=== PATIENT | male | born 1955 | race Caucasian/White ===

== ENCOUNTER → 2018-03-19 15:02 | Outpatient (CLI) | payer BC, SELFPAY ==
--- NOTE | 2018-03-19 15:07 | CT_ITS ---
CT lung screening EXAM: CT LUNG LOW DOSE WO CONTRAST COMPARISON: None HISTORY: 62 year old male asymptomatic with positive smoking history ITS.REASON: CURRENT TOBACCO USE ORDERING PHYSICIAN: Philippe Elizabeth MD PATIENT AGE: 62 years TECHNIQUE: The exam was performed on a GE Light Speed [address] scanner using 2.9 mGy CTDI. A low dose helical CT CHEST was performed on a multi-detector scanner. All CT scans at the facility use one or more dose reduction, viz: automated exposure control; ma/kV adjustment per patient size (including targeted exams where dose is matched to indication; i.e. head); or iterative reconstruction technique. The LDCT was performed in a facility that meets the criteria for the screening program. Data regarding this exam was submitted to ACR which is an approved registry. The order for this exam indicates that it came as a result of a lung cancer screening counseling shard decision-making visit that included all the elements required of such a visit including smoking cessation. The radiologist interpreting this exam meets the [facility] criteria for the LDCT lung cancer screening program. The exam is reported using the Lung-RADS classification scale and reported to the ACR registry. NOTE: This study was performed for the specific purposes of lung cancer screening and is not an alternative to diagnostic chest CT. RADIATION DOSE: CTDI vol(CT dose Index-volume) = 2.90mG DLP (Dose Length Product) = 100.18 mGcm FINDINGS: Indeterminate or Suspicious Lung Nodules(Category3-4B): None Indeterminate/Non-actionable Nodules(Category2): None Benign nodules(Category1)calcified granuloma left perihilar region There is mild hyperinflation with attenuation of peripheral pulmonary vessels consistent with obstructive chronic bronchitis. Mild fibrotic or atelectatic changes are present in the lung bases. There is enlarged right lobe of the thyroid gland which may be better evaluated with ultrasound. There is mild tracheal deviation toward the left IMPRESSION: 1. Lung RADS Category: 2, benign 2. Other findings: COPD with mild atelectatic or fibrotic changes in the lung bases Enlarged right lobe of the thyroid gland, cannot exclude underlying mass/nodule. Consider ultrasound for further evaluation RECOMMENDATIONS: 12 month LDCT follow-up Ultrasound of the thyroid gland
== END ==
PROVIDERS: Family Provider Family Medicine; PCP Family Medicine; Visit Provider Family Medicine
DX: Z87.891 Personal history of nicotine dependence (principal); Z12.2 Encounter for screening for malignant neoplasm of respiratory organs

== ENCOUNTER → 2018-03-28 10:41 | Outpatient (CLI) | payer BC, SELFPAY ==
--- NOTE | 2018-03-28 10:53 | US_ITS ---
ULTRASOUND THYROID PROCEDURE: Multiple sagittal & transverse ultrasound images of the thyroid. HISTORY: Enlarged thyroid seen on recent CT chest screening COMPARISON: 03/19/2018 CT chest ----- FINDINGS: Diffusely enlarged marked inhomogeneous thyroid gland. Multiple nodules bilateral. Inhomogeneous coarse character particularly evident throughout the right lobe inferiorly.. RIGHT LOBE:. 6.5 cm length x 3.4 cm wide x 3.2 cm height. Nodule A: Solid nodule Anterior upper pole 2.2 cm transverse X 1.5 cm length x 1 cm AP. Nodule B: 1.6 x 1.2 x 1.1 cm solid nodule medial aspect towards lower pole right lobe Nodule C:. Although no well-defined nodule there is inferior extension lower pole right lobe. This portion of the right lobe is very inhomogeneous and extends behind the head of right clavicle continuing towards the level inferior sternal notch to the right of midline. This is feature inferior anatomy best seen on prior CT. LEFT LOBE: 4.7 cm length x 2.2 cm wide x 2.2 cm AP. Nodule A:. Large vaguely marginated Solid nodule 3.1 cm length. 1.6 cm AP 1.3 cm transverse at upper pole left lobe.. . . ISTHMUS: Thickened appearing isthmus measuring up to 9.6 mm AP IMPRESSION Bilateral thyroid nodules. Right lobe is grossly enlarged measuring 6.5 cm in length. Inhomogeneous ill-defined area Extends down behind head of clavicle down to the level of inferior right sternal notch., although a defined a discrete nodule this is the most prominent area of focal enlargement on right. Overview of this is best seen on prior CT chest 2additional better nodules are seen on right as discussed in text Left lobe is less enlarged measuring 4.7 cm in length. Largest defined nodule upper pole on left.-, Measures up to 3.1 cm in length
== END ==
PROVIDERS: Family Provider Family Medicine; PCP Family Medicine; Visit Provider Family Medicine
DX: R94.6 Abnormal results of thyroid function studies (principal)
CPT/HCPCS: 76536

== ENCOUNTER → 2018-05-22 08:18 | Outpatient (CLI) | payer BC, SELFPAY ==
--- NOTE | 2018-05-22 08:21 | US_ITS ---
US organ site (thyroid), US biopsy guidance Ordering Physician: Jose Alejandro Gilmore MD Patient Age: 63 years: Male HISTORY: ITS.REASON: thyroid nodule Enlarged right lobe of thyroid nodule appearance lower pole seen on recent screening CT chest and right thyroid ultrasound. TECHNIQUE: ... Ultrasound thyroid BH/Q ... Ultrasound-guided FNA lower lobe nodule FINDINGS AND PROCEDURE: ULTRASOUND thyroid; The thyroid were surveyed with attention to the right lobe Ill-defined lobulation/ mass is identified lower pole right lobe and measures up to ~ 3 cm maximally x 2.5 cm transverse. .These images also determined the best approach for access to perform aspiration biopsy of this nodule. Scanning by Dr. Morataya andGENIE ULTRASOUND-GUIDED FNA BIOPSY- nodule lower pole right lobe . sterile preparation as well as local skin, and cautious deeper placement of Xylocaine anesthetic .. Under ultrasound guidance the biopsy needle, was advanced to the nodule and positioned. Needle tip was observed passing into the nodule on each of multipleFNA biopsies passes. But: 4 passes were performed utilizing 22-gauge needle . Minimal blood was obtained with some of the aspirations . Generous material within the cytology container Right lower lobe thyroid FNA specimen material obtained and subsequently submitted to cytopathology Patient tolerated procedure well. Very cooperative patient IMPRESSION: Ultrasound-guided FNA thyroid biopsy and sampling, throughout right lower lobe nodule/ , & region of lobulation off the lower pole Patient tolerated procedure well CYTOPATHOLOGY REPORT. Negative for malignancy. Findings consistent with benign follicular nodule with features suggesting underlying chronic thyroiditis
[2018-05-22 09:41] LABS: Free T4 (Free Thyroxine) 1.28 ng/dl (0.76-1.46); Thyroid Stimulating Hormone 0.61 uIU/ml (0.358-3.740)
[2018-05-23 20:05] LABS: Thyroid Peroxidase Antibodies 550 IU/mL (0-34)
[2018-05-26 09:48] LABS: Calcitonin 2.1 pg/mL (0.0-8.4)
[2018-05-27 09:18] LABS: Thyroid Stimulating Immunoglob <0.10 IU/L (0.00-0.55)
== END ==
PROVIDERS: Family Provider Family Medicine; PCP Family Medicine; Visit Provider Otolaryngology
DX: E04.9 Nontoxic goiter, unspecified (principal); E04.1 Nontoxic single thyroid nodule; E06.9 Thyroiditis, unspecified
CPT/HCPCS: 10022; 36415; 76942; 82308; 84439; 84443; 84445; 86376

== ENCOUNTER → 2018-07-02 08:24 | Outpatient (CLI) | payer BC, SELFPAY ==
[2018-07-02 09:37] LABS: Basophils # 0.1 K/mm3 (0-0.2); Basophils % 0.6 % (0.1-2.0); Eosinophils # 0.2 K/mm3 (0.0-0.4); Eosinophils % 2.3 % (0.1-12.0); Hematocrit 50.5 % (42.0-52.0); Hemoglobin 16.8 g/dL (14.1-18.0); Lymphocytes % 35.6 K/mm3 (10-50); Mean Corpuscular HGB Conc 33.2 g/dL (31.8-35.4); Mean Corpuscular Hemoglobin 30.5 pg (27.0-31.2); Mean Corpuscular Volume 91.8 fl (80-94); Mean Platelet Volume 7.3 fl (7.4-10.4); Monocytes # 0.8 K/mm3 (0.1-1.0); Monocytes % 9.8 % (1.7-9.3); Neutrophils # 4.4 K/mm3 (1.8-7.8); Neutrophils % 51.7 % (37.0-80.0); Platelet Count 252 K/mm3 (142-424); Red Cell Distribution Width 13.1 % (11.5-17.5); White Blood Count 8.5 K/mm3 (4.8-10.8)
[2018-07-02 11:00] LABS: Alanine Aminotransferase 41 U/L (12-78); Albumin Level 3.8 gm/dL (3.4-5.0); Albumin/Globulin Ratio 1.1 (1.1-1.8); Alkaline Phosphatase 88 U/L (46-116); Anion Gap 12.2 mEq/L (5-15); Aspartate Amino Transferase 17 U/L (15-37); Bilirubin,Total 0.4 mg/dL (0.2-1.0); Blood Urea Nitrogen 19 mg/dL (7-18); Calcium 9.2 mg/dL (8.5-10.1); Carbon Dioxide 26 mmol/L (21.0-32.0); Chloride 106 mmol/L (98-107); Creatinine,Serum 1.43 mg/dL (0.70-1.30); Estimated Glomerular Filt Rate 50 ml/min (>60); GFR (African American) 61 ML/MIN (>60); Globulin 3.6 gm/dl (1.3-3.2); Glucose 141 mg/dL (74-106); Potassium 4.2 mmoL/L (3.5-5.1); Sodium 140 mmol/L (136-145); Total Protein,Serum 7.4 gm/dL (6.4-8.2)
== END ==
PROVIDERS: Visit Provider Nurse Practitioner
DX: Z01.818 Encounter for other preprocedural examination (principal)
CPT/HCPCS: 36415; 80053; 85025; 93005

== ENCOUNTER → 2018-08-13 14:35 | Outpatient (CLI) | payer BC, SELFPAY ==
[2018-08-13 16:26] LABS: Free T4 (Free Thyroxine) 1.53 ng/dl (0.76-1.46); Thyroid Stimulating Hormone 0.08 uIU/ml (0.358-3.740)
== END ==
PROVIDERS: Family Provider Family Medicine; PCP Family Medicine; Visit Provider Otolaryngology
DX: E04.1 Nontoxic single thyroid nodule (principal); E04.9 Nontoxic goiter, unspecified
CPT/HCPCS: 36415; 84439; 84443

== ENCOUNTER → 2021-03-20 07:39 | Outpatient (CLI) | payer BC, SELFPAY ==
--- NOTE | 2021-03-20 07:43 | CT_ITS ---
PROCEDURE: CT LUNG SCREENING CLINICAL INDICATION: H/O NICOTINE DEPENDENCE Current smoker 48 pack year smoking history COMPARISON: CT LUNGSCREEN CT lung screening from 03/19/2018 TECHNIQUE: The exam was performed on a GE Light Speed [address] scanner using 2.90 mGy CTDI. A low dose helical CT CHEST was performed on a multi-detector scanner. All CT scans at the facility use one or more dose reduction, viz: automated exposure control, ma/kV adjustment per patient size (including targeted exams where dose is matched to indication, i.e. head), or iterative reconstruction technique. The LDCT was performed in a facility that meets the criteria for the screening program. Data regarding this exam was submitted to ACR which is an approved registry. The order for this exam indicates that it came as a result of a lung cancer screening counseling shard decision-making visit that included all the elements required of such a visit including smoking cessation. The radiologist interpreting this exam meets the CMS criteria for the LDCT lung cancer screening program. The exam is reported using the Lung-RADS classification scale and reported to the ACR registry. NOTE: This study was performed for the specific purposes of lung cancer screening and is not an alternative to diagnostic chest CT. RADIATION DOSE: CTDI vol(CT dose Index-volume) = 2.90mG DLP (Dose Length Product) = 115.94 mGcm FINDINGS: COPD changes. No suspicious nodules. Evidence of old granulomatous disease. OTHER FINDINGS: Mild gynecomastia. Fatty liver cholelithiasis IMPRESSION: Lung-RADS Category 1 Negative Follow-up: Continue annual screening with LDCT in 12 months Dictated by: Dank Galvan MD 03/30/2021 10:44 Dank Galvan MD in [place] 03/30/2021 10:44
== END ==
PROVIDERS: PCP Family Medicine; Visit Provider Nurse Practitioner
DX: Z87.891 Personal history of nicotine dependence (principal); Z12.2 Encounter for screening for malignant neoplasm of respiratory organs
CPT/HCPCS: 71271

== ENCOUNTER 2022-08-06 02:52 | Emergency (ER) | payer BC, SELFPAY ==
[2022-08-06 02:53] VITALS: BP 164/92; PULSE 71; RESP 18; TEMP 36.5; O2SAT 98; BMI 26.4
--- NOTE | 2022-08-06 03:03 | CT_ITS ---
PROCEDURE INFORMATION: Exam: CTA Neck With Contrast Exam date and time: 08/06/2022 3:34 AM Age: 67 years old Clinical indication: Visual disturbance; Diplopia; Additional info: Binocular diplpia TECHNIQUE: Imaging protocol: Computed tomographic angiography of the neck with contrast. 3D rendering (Not supervised by radiologist): MIP and/or 3D reconstructed images were created by the technologist. Radiation optimization: All CT scans at this facility use at least one of these dose optimization techniques: automated exposure control; mA and/or kV adjustment per patient size (includes targeted exams where dose is matched to clinical indication); or iterative reconstruction. Contrast material: ISOVUE 370; Contrast volume: 100 ml; Contrast route: INTRAVENOUS (IV); COMPARISON: CT HEAD/BRAIN WO CON 08/06/2022 3:32 AM FINDINGS: Right common carotid artery: No stenosis. No dissection or occlusion. Right internal carotid artery: No stenosis of the extracranial segment. No dissection or occlusion. Right external carotid artery: No occlusion or stenosis of the origin. Left common carotid artery: No stenosis. No dissection or occlusion. Left internal carotid artery: No stenosis of the extracranial segment. No dissection or occlusion. Left external carotid artery: No occlusion or stenosis of the origin. Right vertebral artery: No stenosis. No dissection or occlusion. Left vertebral artery: No stenosis. No dissection or occlusion. Soft tissues: Normal. No significant soft tissue swelling. Bones/joints: No acute fracture. IMPRESSION: No occlusion or hemodynamically significant stenosis of the extracranial carotid systems and vertebral arteries. REFERENCES: NASCET CRITERIA. The degree of stenosis in the cervical segment of the internal carotid artery is based on NASCET criteria. Normal is no stenosis. Mild is less than 50% stenosis. Moderate is 50-69% stenosis. Severe is 70% to 99% stenosis. Total occlusion is no detectable patent lumen.
--- NOTE | 2022-08-06 03:03 | CT_ITS ---
PROCEDURE INFORMATION: Exam: CT Head Without Contrast Exam date and time: 08/06/2022 3:32 AM Age: 67 years old Clinical indication: Visual disturbance; Additional info: Binocular diplopia TECHNIQUE: Imaging protocol: Computed tomography of the head without contrast. Radiation optimization: All CT scans at this facility use at least one of these dose optimization techniques: automated exposure control; mA and/or kV adjustment per patient size (includes targeted exams where dose is matched to clinical indication); or iterative reconstruction. COMPARISON: No relevant prior studies available. FINDINGS: Brain: No evidence of mass effect or midline shift. No focal areas of abnormal attenuation. The dickinson/white matter interfaces are preserved. The basal cisterns are patent. Cerebral ventricles: No ventriculomegaly. Paranasal sinuses: Visualized sinuses are unremarkable. No fluid levels. Mastoid air cells: Visualized mastoid air cells are well aerated. Orbital cavities: The orbits and and orbital contents have a normal CT appearance. Bones/joints: Unremarkable. No acute fracture. Soft tissues: Unremarkable. IMPRESSION: 1. No CT evidence of intracranial hemorrhage, mass effect, midline shift or hydrocephalus. 2. Orbits and and orbital contents have a normal CT appearance.
--- NOTE | 2022-08-06 03:03 | CT_ITS ---
PROCEDURE INFORMATION: Exam: CTA Head With Contrast, Arteriography Exam date and time: 08/06/2022 3:34 AM Age: 67 years old Clinical indication: Visual disturbance; Diplopia; Additional info: Binocular diplopia TECHNIQUE: Imaging protocol: Computed tomographic angiography of the head with contrast. Exam focused on the arteries. 3D rendering (Not supervised by radiologist): MIP and/or 3D reconstructed images were created by the technologist. Radiation optimization: All CT scans at this facility use at least one of these dose optimization techniques: automated exposure control; mA and/or kV adjustment per patient size (includes targeted exams where dose is matched to clinical indication); or iterative reconstruction. Contrast material: ISOVUE 370; Contrast volume: 100 ml; Contrast route: INTRAVENOUS (IV); COMPARISON: CT HEAD/BRAIN WO CON 08/06/2022 3:32 AM FINDINGS: ANTERIOR CIRCULATION: Right internal carotid artery: Unremarkable. Intracranial segment is patent with no significant stenosis. No aneurysm. Right middle cerebral artery: Unremarkable. No occlusion or significant stenosis. No aneurysm. Right anterior cerebral artery: Unremarkable. No occlusion or significant stenosis. No aneurysm. Left internal carotid artery: Unremarkable. Intracranial segment is patent with no significant stenosis. No aneurysm. Left middle cerebral artery: No occlusion or significant stenosis. No aneurysm. Left anterior cerebral artery: No occlusion or significant stenosis. No aneurysm. POSTERIOR CIRCULATION: Right vertebral artery: Unremarkable. No occlusion or significant stenosis. No aneurysm. Left vertebral artery: Unremarkable. No occlusion or significant stenosis. No aneurysm. Basilar artery: Unremarkable. No occlusion or significant stenosis. No aneurysm. Right posterior cerebral artery: Unremarkable. No occlusion or significant stenosis. No aneurysm. Left posterior cerebral artery: Unremarkable. No occlusion or significant stenosis. No aneurysm. Brain: No evidence of intracranial hemorrhage, mass effect, midline shift or hydrocephalus. Cerebral ventricles: No ventriculomegaly. Bones/joints: Unremarkable. No acute fracture. Soft tissues: Unremarkable. IMPRESSION: No large vessel stenosis or occlusion.
[2022-08-06 03:17] LABS: Basophils # 0.1 K/mm3 (0-0.2); Basophils % 1.5 % (0.1-2.0); Eosinophils # 0.2 K/mm3 (0.0-0.4); Eosinophils % 2.5 % (0.1-12.0); Hematocrit 52.5 % (42.0-52.0); Lymphocytes # 2.7 K/mm3 (0.7-4.5); Lymphocytes % 28.8 % (10-50); Mean Corpuscular HGB Conc 32.3 g/dL (31.8-35.4); Mean Corpuscular Hemoglobin 30.7 pg (27.0-31.2); Mean Corpuscular Volume 94.9 fl (80-94); Mean Platelet Volume 7.7 fl (7.4-10.4); Monocytes # 1.1 K/mm3 (0.1-1.0); Monocytes % 11.4 % (1.7-9.3); Neutrophils # 5.3 K/mm3 (1.8-7.8); Neutrophils % 55.7 % (37.0-80.0); Platelet Count 242 K/mm3 (142-424); Red Blood Count 5.54 M/mm3 (4.60-6.20); White Blood Count 9.5 K/mm3 (4.8-10.8)
[2022-08-06 03:28] LABS: Alanine Aminotransferase 33 U/L (12-78); Albumin Level 4.2 g/dl (3.5-5.0); Albumin/Globulin Ratio 1.4 (1.1-1.8); Alkaline Phosphatase 128 U/L (38-126); Aspartate Amino Transferase 31 U/L (17-59); Blood Urea Nitrogen 19 mg/dl (9-20); Calcium 9.1 mg/dl (8.4-10.2); Carbon Dioxide 25 mmol/L (22.0-30.0); Chloride 106 mmol/L (98-107); Creatinine Clearance Estimated 93 mL/min (50-200); Estimated Glomerular Filt Rate 97 ml/min (>60); GFR (African American) 117 ML/MIN (>60); Glucose 184 mg/dl (74-100); Sodium 137 mmol/L (136-145); Total Protein,Serum 7.2 g/dl (6.3-8.2)
[2022-08-06 03:29] LABS: Bilirubin,Total 0.1 mg/dl (0.2-1.3)
[2022-08-06 03:30] VITALS: BP 133/86; PULSE 63; O2SAT 98
[2022-08-06 04:00] VITALS: BP 138/71; PULSE 71; O2SAT 98
--- NOTE | 2022-08-06 04:15 | HMH.EDGENADL ---
Discharge Plan Disposition Patient Disposition: Home Health Service Condition: Good Prescriptions Prescriptions: New amoxicillin-pot clavulanate [Augmentin] 500-125 mg tablet 1 tab PO Q12H Qty: 20 0RF No Action fenofibric acid (choline) [Trilipix] 135 mg capsule,delayed release(DR/EC) 135 mg PO ONCE pravastatin 40 mg tablet 40 mg PO ONCE sitagliptin-metformin [Janumet] 50-1,000 mg tablet 1 tab PO ONCE lisinopril 10 mg tablet 10 mg PO DAILY 30 Days Qty: 30 omeprazole 40 mg capsule,delayed release(DR/EC) 40 mg PO DAILY 30 Days Qty: 30 levothyroxine [Synthroid] 200 mcg tablet 225 mcg PO ONCE Referrals Follow up/Referrals: Calos You MD [Referring] - See instructions (Increased congestion with diplopia, CT head and CTA head/ neck unremarkable) Davi Nolasco MD [Physician] - See instructions Leigh Goss MD [Primary Care Provider] - See instructions (Increased congestion with diplopia , CT head and CTA head/neck unremarkable ) Activity Restrictions/Add. Instructions Additional Instructions/Restrictions: You have been referred to ENT as well as opthamology for your ongoing symptoms. Symptoms may be secondary to increased congestion however, Please call numbers provided saturday to make appointment with both specialist, starting with opthamology. You have been given antibiotic for chronic sinusitis use as prescribed. Please use over the counter decongestants such as mucinex, flonase to help w/ congestion. You can also use humidifier to breath moist air. Please return to [facility] if numbness, weakness, headache, speech changes, neck pain or any other worsening symptoms. Clinical Impressions Clinical Impression: Change in vision, Congestion of nasal sinus, Sinusitis Instructions Patient Instructions: DI for Sinusitis, DI for Visual Field Disturbances Discharge ED Provider: Nicole Pryor General Adult HPI General Chief complaint: Headache Stated complaint: severe headache, double vision Time Seen by Provider: 08/06/22 04:30 Mode of Arrival: Ambulatory Source of Information: Patient Limitations: No Limitations Description of Symptoms (Recalled from ER Triage Doc. by RN): pt c/o double vision x couple days with NOE and pressure behind lt eye History of Present Illness HPI narrative: Mr. Bowens is a 67 yo male w/ no significant PMH presenting to the ED for constant binocular diplopia for about a week and increased congestion and pressure behind his (L) eye for 3 weeks. Patient reports he has had increased congested and has attempted to take afrin with no relief in congestion. Patient denies headache. No pain w/ EOM. No focal neurological deficits. No fevers, chills or other systemic signs of infection. MD complaint: Binocular diplopia Related Data Home Medications Medication Instructions Recorded Confirmed fenofibric acid (choline) 135 mg 135 mg PO ONCE triglycerides 04/09/18 05/15/18 capsule,delayed release (Trilipix) lisinopril 10 mg tablet 10 mg PO DAILY blood pressure 30 04/09/18 05/15/18 days ##30 omeprazole 40 mg capsule,delayed 40 mg PO DAILY stomach 30 days ##30 04/09/18 05/15/18 release pravastatin 40 mg tablet 40 mg PO ONCE Cholesterol 04/09/18 05/15/18 sitagliptin 50 mg-metformin 1,000 1 tab PO ONCE Diabetes 04/09/18 05/15/18 mg tablet (Janumet) levothyroxine 200 mcg tablet 225 mcg PO ONCE thyroid 08/18/18 (Synthroid) Previous Rx's Medication Instructions Recorded amoxicillin 500 mg-potassium 1 tab PO Q12H #20 tabs 08/06/22 clavulanate 125 mg tablet (Augmentin) Allergies Allergy/AdvReac Type Severity Reaction Status Date / Time No Known Allergies Allergy Verified 08/18/18 12:51 [facility] Medical History Diabetes High cholesterol Hypertension Social History Smoking Status: Current every day smoker tobac
[2022-08-06 04:41] VITALS: BP 130/83; PULSE 66; RESP 16; TEMP 36.7; O2SAT 96
== END 2022-08-06 04:42 | disposition home health service (06) ==
PROVIDERS: Emergency Provider Student in an Organized Health Care Education/Training Program; PCP Family Medicine
DX: H53.9 Unspecified visual disturbance (principal); J32.9 Chronic sinusitis, unspecified; Z72.0 Tobacco use
CPT/HCPCS: 70450; 70496; 70498; 80053; 85025; 99285; Q9967

== ENCOUNTER → 2023-07-03 08:58 | Outpatient (CLI) | payer MEDICARE, SELFPAY ==
[2023-07-03 18:10] LABS: Basophils # 0.1 K/mm3 (0-0.2); Basophils % 0.8 % (0.1-2.0); Eosinophils # 0.2 K/mm3 (0.0-0.4); Eosinophils % 1.8 % (0.1-12.0); Hematocrit 59.6 % (42.0-52.0); Lymphocytes # 2.9 K/mm3 (0.7-4.5); Lymphocytes % 32.5 % (10-50); Mean Corpuscular HGB Conc 31.3 g/dL (31.8-35.4); Mean Corpuscular Hemoglobin 29.1 pg (27.0-31.2); Mean Platelet Volume 9.5 fl (7.4-10.4); Monocytes # 0.8 K/mm3 (0.1-1.0); Monocytes % 9.3 % (1.7-9.3); Neutrophils % 55.5 % (37.0-80.0); Platelet Count 241 K/mm3 (142-424); Red Blood Count 6.41 M/mm3 (4.60-6.20); Red Cell Distribution Width 13.6 % (11.5-17.5)
[2023-07-03 18:20] LABS: Hemoglobin 18.7 g/dL (14.1-18.0)
[2023-07-03 18:20] LABS: Creatinine,Urine Random 116 mg/dL (Not Estab.); Microalbumin/Creatinine Ratio 6.9
[2023-07-03 18:21] LABS: Alanine Aminotransferase 32 U/L (12-78); Albumin Level 4.7 g/dl (3.5-5.0); Albumin/Globulin Ratio 1.6 (1.1-1.8); Alkaline Phosphatase 98 U/L (38-126); Anion Gap 12.7 mEq/L (5-15); Aspartate Amino Transferase 30 U/L (17-59); Bilirubin,Total 0.7 mg/dl (0.2-1.3); Blood Urea Nitrogen 20 mg/dl (9-20); Calcium 9.6 mg/dl (8.4-10.2); Carbon Dioxide 26 mmol/L (22.0-30.0); Chloride 105 mmol/L (98-107); Chol/HDL Ratio 7.7 (1-3.5); Cholesterol 270 mg/dl (140-200); Estimated Glomerular Filt Rate 67 ml/min (>60); GFR (African American) 81 ML/MIN (>60); Globulin 2.9 g/dL (1.3-3.2); Glucose 105 mg/dl (74-100); HDL Cholesterol 35 mg/dl (40-60); Potassium 4.7 mmoL/L (3.5-5.1); Sodium 139 mmol/L (136-145); Total Protein,Serum 7.6 g/dl (6.3-8.2); Triglycerides 263 mg/dl (30-150); VLDL Cholesterol 53 mg/dL (0-40)
[2023-07-03 18:22] LABS: Free T4 (Free Thyroxine) 0.66 ng/dl (0.78-2.19)
[2023-07-03 18:32] LABS: Direct LDL Cholesterol 166.65 mg/dL (100-129)
[2023-07-03 18:52] LABS: Prostate Specific Ag Screen 0.5 ng/ml (0.0-4.0)
[2023-07-03 18:54] LABS: Thyroid Stimulating Hormone 4.58 uIU/mL (0.465-4.68)
[2023-07-03 19:13] LABS: Vitamin B12 303 pg/mL (239-931)
[2023-07-03 20:09] LABS: Hemoglobin A1C 7.5 % (4.0-6.0)
== END ==
PROVIDERS: PCP Nurse Practitioner; Visit Provider Nurse Practitioner
DX: E03.9 Hypothyroidism, unspecified (principal); E11.9 Type 2 diabetes mellitus without complications; E78.5 Hyperlipidemia, unspecified; I10 Essential (primary) hypertension; K21.9 Gastro-esophageal reflux disease without esophagitis; Z12.5 Encounter for screening for malignant neoplasm of prostate; Z79.899 Other long term (current) drug therapy
CPT/HCPCS: 80053; 80061; 82043; 82570; 82607; 83036; 84439; 84443; 85025; G0103

== ENCOUNTER 2024-07-03 11:32 | Outpatient (CLI) | payer MEDICARE, SELFPAY ==
[2024-07-03 17:56] LABS: Microscopic, Urine URINE MICROSCOPIC (MICROSCOPIC)
[2024-07-03 18:08] LABS: Basophils # 0.2 K/mm3 (0-0.2); Basophils % 1.8 % (0.1-2.0); Eosinophils # 0.2 K/mm3 (0.0-0.4); Eosinophils % 2.1 % (0.1-12.0); Hematocrit 57.3 % (42.0-52.0); Lymphocytes # 2.5 K/mm3 (0.7-4.5); Lymphocytes % 30.6 % (10-50); Mean Corpuscular HGB Conc 32.6 g/dL (31.8-35.4); Mean Corpuscular Hemoglobin 31.7 pg (27.0-31.2); Mean Corpuscular Volume 97.3 fl (80-94); Mean Platelet Volume 9.2 fl (7.4-10.4); Monocytes # 0.8 K/mm3 (0.1-1.0); Monocytes % 9.4 % (1.7-9.3); Neutrophils # 4.6 K/mm3 (1.8-7.8); Platelet Count 227 K/mm3 (142-424); Red Blood Count 5.89 M/mm3 (4.60-6.20); Red Cell Distribution Width 13.7 % (11.5-17.5); White Blood Count 8.2 K/mm3 (4.8-10.8)
[2024-07-03 18:24] LABS: Hemoglobin 18.7 g/dL (14.1-18.0)
[2024-07-03 18:25] LABS: Alanine Aminotransferase 43 U/L (12-78); Albumin Level 4.3 g/dl (3.5-5.0); Albumin/Globulin Ratio 1.4 (1.1-1.8); Alkaline Phosphatase 99 U/L (38-126); Anion Gap 12.4 mEq/L (5-15); Aspartate Amino Transferase 32 U/L (17-59); Bilirubin,Total 0.5 mg/dl (0.2-1.3); Blood Urea Nitrogen 19 mg/dl (9-20); Calcium 9.7 mg/dl (8.4-10.2); Carbon Dioxide 25 mmol/L (22.0-30.0); Chloride 106 mmol/L (98-107); Chol/HDL Ratio 5.3 (1-3.5); Cholesterol 163 mg/dl (140-200); Estimated Glomerular Filt Rate 74 ml/min (>60); GFR (African American) 90 ML/MIN (>60); Globulin 3.1 g/dL (1.3-3.2); Glucose 144 mg/dl (74-100); HDL Cholesterol 31 mg/dl (40-60); Hemoglobin A1C 7.5 % (4.0-6.0); Potassium 4.4 mmoL/L (3.5-5.1); Sodium 139 mmol/L (136-145); Total Protein,Serum 7.4 g/dl (6.3-8.2); Triglycerides 277 mg/dl (30-150); VLDL Cholesterol 55 mg/dL (0-40)
[2024-07-03 18:28] LABS: Appearance,Urine CLEAR (Clear); Bilirubin,Urine Negative (Negative); Blood, Urine Negative (Negative); Color,Urine YELLOW (Yellow); Glucose,Urine (UA) 3+ (Negative); Ketones,Urine Negative (Negative); Leukocyte Esterase,Urine Negative (Negative); Nitrate,Urine Negative (Negative); Protein,Urine Negative (Negative); Specific Gravity, Urine >= 1.030 (1.005-1.030); Urobilinogen,Urine 0.2 EU/dl (0.2)
[2024-07-03 18:35] LABS: Direct LDL Cholesterol 91.36 mg/dL (100-129)
[2024-07-03 18:41] LABS: 25-OH Vitamin D, Total 45.7 ng/mL (30-100)
[2024-07-03 18:49] LABS: Bacteria,Urine Trace /lpf; Squamous Epithelial Cell,Urine Occasional #/hpf (0-5); WBC,Urine Occasional #/hpf (0-3)
[2024-07-03 18:56] LABS: Thyroid Stimulating Hormone 0.06 uIU/mL (0.465-4.68)
[2024-07-03 19:14] LABS: Vitamin B12 318 pg/mL (239-931)
== END 2024-07-03 23:59 | disposition home or self-care (01) ==
LOC: LAB.DROPOF 07-06 11:32
PROVIDERS: PCP Nurse Practitioner Family; Visit Provider Nurse Practitioner Family
DX: E11.9 Type 2 diabetes mellitus without complications (principal); E03.9 Hypothyroidism, unspecified; E55.9 Vitamin D deficiency, unspecified; R10.9 Unspecified abdominal pain
CPT/HCPCS: 80050; 80053; 80061; 81001; 82306; 82607; 83036; 84443; 85025; 87086

== ENCOUNTER 2025-03-17 09:15 | Outpatient (CLI) | payer MEDICARE, SELFPAY ==
[2025-03-17 18:48] LABS: Hemoglobin A1C 7.8 % (4.0-6.0)
[2025-03-17 19:17] LABS: Alanine Aminotransferase 30 U/L (12-78); Albumin Level 4.2 g/dl (3.5-5.0); Albumin/Globulin Ratio 1.4 (1.1-1.8); Alkaline Phosphatase 119 U/L (38-126); Anion Gap 16.7 mEq/L (5-15); Aspartate Amino Transferase 28 U/L (17-59); Bilirubin,Total 0.5 mg/dl (0.2-1.3); Blood Urea Nitrogen 14 mg/dl (9-20); Calcium 9.4 mg/dl (8.4-10.2); Carbon Dioxide 24 mmol/L (22.0-30.0); Chloride 104 mmol/L (98-107); Chol/HDL Ratio 5.8 (1-3.5); Cholesterol 167 mg/dl (140-200); Estimated Glomerular Filt Rate 84 ml/min (>60); GFR (African American) 102 ML/MIN (>60); Globulin 3.1 g/dL (1.3-3.2); Glucose 125 mg/dl (74-100); HDL Cholesterol 29 mg/dl (40-60); Potassium 4.7 mmoL/L (3.5-5.1); Sodium 140 mmol/L (136-145); Total Protein,Serum 7.3 g/dl (6.3-8.2); Triglycerides 335 mg/dl (30-150); VLDL Cholesterol 67 mg/dL (0-40)
[2025-03-17 19:27] LABS: Direct LDL Cholesterol 84.87 mg/dL (100-129)
[2025-03-17 19:30] LABS: Free T4 (Free Thyroxine) 1.28 ng/dl (0.78-2.19)
[2025-03-17 19:42] LABS: Creatinine,Urine Random 109 mg/dL (Not Estab.)
[2025-03-17 19:45] LABS: Microalbumin/Creatinine Ratio 5.5
[2025-03-17 19:48] LABS: Prostate Specific Ag Screen 0.5 ng/ml (0.0-4.0); Thyroid Stimulating Hormone 0.25 uIU/mL (0.465-4.68)
== END 2025-03-17 23:59 | disposition home or self-care (01) ==
LOC: LAB.DROPOF 03-18 10:51
PROVIDERS: PCP Nurse Practitioner; Visit Provider Nurse Practitioner
DX: E78.5 Hyperlipidemia, unspecified (principal); E11.9 Type 2 diabetes mellitus without complications; I10 Essential (primary) hypertension; E03.9 Hypothyroidism, unspecified; K21.9 Gastro-esophageal reflux disease without esophagitis; Z12.5 Encounter for screening for malignant neoplasm of prostate
CPT/HCPCS: 80053; 80061; 82043; 82570; 83036; 84439; 84443; G0103

== ENCOUNTER 2025-06-17 06:04 | Day surgery (SDC) | payer MEDICARE, SELFPAY ==
[2025-06-15 17:28] VITALS: BMI 25.0
[2025-06-17 06:15] VITALS: BP 119/78; PULSE 67; RESP 18; O2SAT 97
[2025-06-17] MEDS: LACTATED RINGERS 1000ML 1,000 ML 50 ML IV (06:32)
[2025-06-17 06:42] LABS: POC Glucose,Bedside 131 (70-110)
--- NOTE | 2025-06-17 07:06 | EXP.ANES.CKL ---
[facility] Disclaimer: The information contained in this section may have been updated after the patient was seen, as this information can be updated by other users. Medical History GERD (gastroesophageal reflux disease) Acquired hypothyroidism Type 2 diabetes mellitus without complications Hyperlipidemia Essential hypertension High cholesterol Diabetes Hypertension Family History (Updated 06/17/25 @ 06:29 by La Galdamez RN) Other No significant family history Social History (Updated 06/17/25 @ 06:27 by La Galdamez RN) Smoking Status: Current every day smoker tobacco type: cigarettes packs per day: 1 alcohol intake: current alcohol intake frequency: holidays/special occasions only counseling provided: none substance use type: denies use current occupational status: other Travel in the last 8 weeks?: None caffeine: No Have you lived/traveled outside [place] in past 30 days?: No Contact w/someone who lives/traveled outside [place] past 30 days?: No Exposure to someone with infectious disease in past 14 days?: No Do you have a fever (greater than 100.4 F or 38 C)?: No Have you tested positive for COVID-19?: No Exposed to someone with COVID-19 in past 14 days?: No Do you have a sore throat?: No Do you have a cough?: No Do you have any weakness?: No Do you have any diarrhea?: No Are you experiencing any unusual bleeding?: No Do you have any muscle aches/pain?: No Do you have any abdominal pain?: No Are you experiencing loss of taste or smell?: No [facility] Anesthesia Checklist Patient Identification Patient Identification: Arm Band and Family Structural Data Admitted From: Home Planned Operative Procedure/s: Colonoscopy Consent for Planned Operative Procedure(s) Verified: Yes Verified Documents: Surgical Consent and History and Physical NPO Status Verified Time NPO: 00:00 Additional verifications Patient : No Anesthesia Reactions: No Hx Blood Transfusions: No Blood Transfusion Reaction: No Cephalosporin Allergy: No Previous Colonoscopy: Yes Airway Assessment Mallampati Score:: Class II C-Spine Mobility Assessed: Yes TMJ Mobility Assessed: Yes Dentition: Good Dentition Neurological Assessment Level of Consciousness: Awake, Alert, Appropriate and Follows Commands Hx Seizures: No Numbness or tingling in extremities: No Anesthesia Plan Anesthesia Risk discussed: Yes ASA Class: II Anesthesia Type: MAC Preoperative Comments Pre-Operative Comments: Hypertension. NIDDM. Hypothyroid. Half of thyroid removed.
--- NOTE | 2025-06-17 07:06 | EXP.HP ---
History of Present Illness *Admission Date: 06/17/25 *Reason for visit:: Screening *History of present illness: Mr. Bowens is a 70-year-old gentleman who is here for follow-up surveillance/screening colonoscopy secondary to a personal history of adenomatous polyps. The examination is deemed medically necessary for surveillance colonoscopy. The patient has been seen, interviewed and examined prior to the procedure by both myself and the anesthesia provider. [facility] Disclaimer: The information contained in this section may have been updated after the patient was seen, as this information can be updated by other users. Medical History GERD (gastroesophageal reflux disease) Acquired hypothyroidism Type 2 diabetes mellitus without complications Hyperlipidemia Essential hypertension High cholesterol Diabetes Hypertension Family History (Updated 06/17/25 @ 06:29 by La Galdamez RN) Other No significant family history Social History (Updated 06/17/25 @ 06:27 by La Galdamez RN) Smoking Status: Current every day smoker tobacco type: cigarettes packs per day: 1 alcohol intake: current alcohol intake frequency: holidays/special occasions only counseling provided: none substance use type: denies use current occupational status: other Travel in the last 8 weeks?: None caffeine: No Have you lived/traveled outside US in past 30 days?: No Contact w/someone who lives/traveled outside US past 30 days?: No Exposure to someone with infectious disease in past 14 days?: No Do you have a fever (greater than 100.4 F or 38 C)?: No Have you tested positive for COVID-19?: No Exposed to someone with COVID-19 in past 14 days?: No Do you have a sore throat?: No Do you have a cough?: No Do you have any weakness?: No Do you have any diarrhea?: No Are you experiencing any unusual bleeding?: No Do you have any muscle aches/pain?: No Do you have any abdominal pain?: No Are you experiencing loss of taste or smell?: No Other Medical History Have you received the Flu Vaccine for this season: Yes Have you received the Pneumonia Vaccine: Yes Review of Systems Review of Systems Review of systems (narrative): Negative *Cardiovascular Comments: Negative *Gastrointestinal Comments: Negative *Genitourinary Comments: Negative *Musculoskeletal Comments: Negative *Neurologic Comments: Negative Meds Home Medications and Allergies Home Medications ?Medication ?Instructions ?Recorded ?Confirmed ?Type dapagliflozin propanediol 10 mg 10 mg PO DAILY #90 tabs 03/17/25 06/17/25 Rx tablet (Farxiga) lisinopril 10 mg tablet 10 mg PO DAILY #90 tabs 03/17/25 06/17/25 Rx omeprazole 40 mg capsule,delayed 40 mg PO DAILY stomach 30 days #90 03/17/25 06/17/25 Rx release caps rosuvastatin 10 mg tablet 10 mg PO DAILY #90 tabs 03/17/25 06/17/25 Rx sitagliptin phosphate 50 1 tab PO DAILY Diabetes #90 tabs 03/17/25 06/17/25 Rx mg-metformin 1,000 mg tablet (Janumet) levothyroxine 200 mcg tablet See Rx Instructions .Route 03/18/25 06/17/25 Rx .COMPLEX #90 tabs fenofibric acid (choline) 135 mg 135 mg PO DAILY triglycerides #90 04/08/25 06/17/25 Rx capsule,delayed release caps sodium,potassium,mag sulfates 17.5 See Rx Instructions PO .COMPLEX 06/07/25 06/17/25 Rx gram-3.13 gram-1.6 gram oral soln #354 mL (Suprep Bowel Prep Kit) New Prescriptions to Start Prescriptions: Allergies Allergy/AdvReac Type Severity Reaction Status Date / Time No Known Allergies Allergy Verified 06/17/25 06:31 Exam Data for Last 24 hours Vital signs and Labs for Last 24 Hours: Pulse Resp BP Pulse Ox O2 Del Method 67 18 119/78 97 Room Air 06/17/25 06:15 06/17/25 06:15 06/17/25 06:15 06/17/25 06:15 06/17/25 06:15 Laboratory Results - last 24 hr 06/17/25 06:33: POC Glucose 131 H I & O for Last 24 hours: Intake & Output 06/14/25 06/15/25 06/16/25 06/17/25 23:59 23:59 23:59 23:59 Weight 190 lb *Routine HEENT Exam Head: Present normocephalic Eye: Present EOMI and PERRL ENT: Present mucous membranes moist *Routine Neck Exam Neck: Present supple *Routine Respiratory Exam Respiratory: Present CTA bilaterally *Routine Cardiovascular Exam Cardiovascular: Present RRR *Routine Abdominal Exam Abdominal: Present soft and normoactive bowel sounds; Absent tenderness *Routine Rectal Exam Rectal:: deferred *Routine Genitalia Exam Genitalia:: deferred *Routine Extremities Exam Extremities: Absent cyanosis, clubbing or edema *Routine Skin Exam Skin: Present warm; Absent rash *Routine Neurological Exam Neurological: Present alert and oriented X3 Assessment and Plan *Assessment and plan (1) Personal history of adenomatous and serrated colon polyps: Status: Acute Category: Medical Code(s): Z86.0101 - Personal history of adenomatous and serrated colon polyps Plan A/P: 1. Personal history of adenomatous colon polyps is the preprocedural diagnosis. The patient will be anesthetized/sedated using MAC sedation. The patient has been seen and examined. Cardiac and lung assessment prior to the examination is stable. Proceed with planned screening/surveillance colonoscopy.
--- NOTE | 2025-06-17 07:21 | HMH.PROCNOTE ---
[facility] Procedure Note Date: 06/17/25 Time: 07:34 Procedure Note:: Colonoscopy Procedure Report: Colonoscopy with cold snare polypectomy Endoscopist: Satnam Epstein II, MD Referring physician: TORI Herrera Date of Procedure: June 17, 2025 Equipment: Olympus 190 variable stiffness pediatric colonoscope Sedation: MAC sedation Indication: Mr. Bowens is a 70-year-old gentleman who is here for follow-up screening/surveillance colonoscopy. The patient's last colonoscopy was May 2018 (Wallace Jacobs M.D.) and he had 2 polyps removed (adenomatous polyps). The patient reports no abdominal pain, weight loss, change in his bowel habits or rectal bleeding. He reports no family history of colon cancer. Procedure: Prior to the procedure, a history and physical exam was performed, and patient's medications and allergies were reviewed. The risks, benefits and alternatives of the sedation and procedure were discussed with the patient. All questions were answered and informed consent was obtained. The patient was brought to the procedure room. Patient identification and proposed procedure were verified by the physician and the nurse. The patient was placed in a left lateral decubitus position and the scope was passed under direct vision. Throughout the procedure, the patient's blood pressure, pulse, and oxygen saturations were monitored continuously. The colonoscopy was accomplished without difficulty. The patient tolerated the procedure well. Findings: On digital rectal examination there was normal rectal tone. There were no external hemorrhoids. The prostate was mildly firm but symmetric without nodules. The colonoscope was introduced through the anal canal to the rectum and advanced to the cecum. The ileocecal valve and appendiceal orifice were identified. The scope was advanced a short distance into the ileum which appeared grossly normal. The scope was then withdrawn into the colon. There were 2 diminutive polyps in the ascending colon (2 and 3 mm) which were both removed via cold snare polypectomy. The remaining cecum, ascending and transverse colon and mucosa were grossly normal. There were scattered diverticuli throughout the colon but more predominantly in the descending and sigmoid colon (LEFT colon). The rectum itself was normal. Upon retroflexion within the rectum there were grade 2 internal hemorrhoids. The preparation was excellent throughout with [place] Preparation Score of 9. The cecal time was 12 minutes. Impression: 1. Diminutive colonic polyps x 2 2. Pandiverticulosis 3. Grade 2 internal hemorrhoids Plan: I will follow-up the polyp histology and recommend repeat surveillance colonoscopy again in 7 to 10 years based upon the pathology. I would encourage psyllium bulking fiber supplementation on a maintenance basis.
[2025-06-17 07:38] VITALS: BP 125/80; PULSE 68; RESP 18; TEMP 36.2; O2SAT 98
[2025-06-17 07:48] VITALS: BP 128/80; PULSE 61; RESP 18; O2SAT 100
[2025-06-17 07:58] VITALS: BP 115/62; PULSE 60; RESP 16; O2SAT 99
[2025-06-17 08:38] VITALS: BP 129/77; PULSE 54; RESP 18; TEMP 36.2; O2SAT 100
== END 2025-06-17 08:43 | disposition home or self-care (01) ==
PROVIDERS: PCP Nurse Practitioner; Visit Provider Internal Medicine Gastroenterology
PROC: 0DJD8ZZ Inspection of Lower Intestinal Tract, Via Natural or Artificial Opening Endoscopic (ICD-10-PCS; CPT 45378; principal; 2025-06-17 07:30)
DX: Z12.11 Encounter for screening for malignant neoplasm of colon (principal); Z86.0101 Personal history of adenomatous and serrated colon polyps; K57.90 Diverticulosis of intestine, part unspecified, without perforation or abscess without bleeding; K64.1 Second degree hemorrhoids; E03.9 Hypothyroidism, unspecified; E11.9 Type 2 diabetes mellitus without complications; I10 Essential (primary) hypertension; K21.9 Gastro-esophageal reflux disease without esophagitis; E78.5 Hyperlipidemia, unspecified; F17.210 Nicotine dependence, cigarettes, uncomplicated; Z79.899 Other long term (current) drug therapy
CPT/HCPCS: 45385; 82962; J2003; J2704; J7120

== ENCOUNTER 2025-10-11 16:34 | Outpatient (CLI) | payer MEDICARE, SELFPAY ==
[2025-10-11 18:26] LABS: Alanine Aminotransferase 34 U/L (12-78); Albumin Level 4.4 g/dl (3.5-5.0); Albumin/Globulin Ratio 1.4 (1.1-1.8); Alkaline Phosphatase 104 U/L (38-126); Anion Gap 14.0 mEq/L (5-15); Aspartate Amino Transferase 26 U/L (17-59); Bilirubin,Total 0.6 mg/dl (0.2-1.3); Blood Urea Nitrogen 17 mg/dl (9-20); Calcium 9.8 mg/dl (8.4-10.2); Carbon Dioxide 26 mmol/L (22.0-30.0); Chloride 101 mmol/L (98-107); Cholesterol 134 mg/dl (140-200); Creatinine,Serum 1.00 mg/dl (0.66-1.25); Estimated Glomerular Filt Rate 74 ml/min (>60); GFR (African American) 90 ML/MIN (>60); Globulin 3.1 g/dL (1.3-3.2); Glucose 140 mg/dl (74-100); HDL Cholesterol 31 mg/dl (40-60); Potassium 5.0 mmoL/L (3.5-5.1); Sodium 136 mmol/L (136-145); Total Protein,Serum 7.5 g/dl (6.3-8.2); Triglycerides 235 mg/dl (30-150)
[2025-10-11 18:49] LABS: Free T4 (Free Thyroxine) 1.71 ng/dl (0.78-2.19)
[2025-10-11 18:58] LABS: Thyroid Stimulating Hormone 0.32 uIU/mL (0.465-4.68)
[2025-10-11 22:00] LABS: Hepatitis C Ab Qual. W/ RFX NEGATIVE (Negative)
--- OUTSIDE RECORDS SUMMARY | 2025-10-12 16:37 | XMS_ITS | Clinical Summary ---
Author Organization [facility] Phone Care Team Providers Care Hospice Spiritual Care Coordinator Name Role Phone Kendrick Elizabeth Primary Care Provider [phone] Allergies No known active allergies Medications Fenofibric Acid 135 mg Oral Capsule, Delayed Release(E.C.) Take 1 Capsule by mouth daily. 03/07/2022 Active LEVOthyroxine (SYNTHROID) 200 mcg Oral Tablet daily. 03/30/2022 Act mary lisinopriL (PRINIVIL;ZESTR IL) 10 mg Oral Tablet Take 10 mg by mouth daily. 03/16/2022 Active omeprazole (PRILOSEC) 40 mg Oral Capsule, Delayed Release(E.C.) Take 40 mg by mouth daily. 03/07/2022 Active rosuvastatin (CRESTOR) 10 mg Oral Tablet Take 10 mg by mouth daily. 03/07/2022 Active JANUMET 50-1,000 mg Oral Tablet Take 1 Tablet by mouth daily. 03/06/2022 Active oxyCODONE (ROXICODONE) 5 mg Oral Tablet Take 1-2 Tablets by mouth every 6 hours as needed for Major Surgery/Trau ma (G89.18). 20 Tablet 12/12/2022 Active aspirin 81 mg Oral Tablet, Chewable Take 1 Tablet by mouth daily. 14 Tablet 12/12/2022 Active Active Problems Problem Noted Date Diagnosed Date Bucket-handle tear of medial meniscus of right knee as current injury 11/29/2022 Overview (11/29/2022): Added automatically from request for surgery [id number] Right knee pain 11/28/2022 Lateral rectus palsy, left 08/10/2022 Assessment & Plan (08/10/2022 11:34 AM EDT): Pt educated on findings. Pt reports good control of his A1C/ diabetes and his HTN. Lateral rectus palsy is mild as pt able to abduct some but unable to follow in more extreme gaze OS. Reports variable diplopia depending on gaze. Pt was seen at the ER recently near [place] with scans and was told everything was fine/unremarkable. Advised this should resolve with time and no further intervention needed at this time. RTC in 2 months for palsy follow-up or earlier if having new symptoms arise. Age-related nuclear cataract of both eyes 2021 Assessment & Plan (08/10/2022 11:32 AM EDT): No surgery indicated. Patient states activities of daily living not reduced enough to proceed with surgery at this time. Discussed natural history of cataract progression and that patient can return at any time if symptoms worsen. Patient expressed understanding. Hx of LASIK 08/10/2022 Familial drusen, bilateral 08/10/2022 Assessment & Plan (08/10/2022 12:02 PM EDT): Pt's DENI was 15 year ago when he got LASIK, pt has not been told of this before. VERY prominent familial drusen OU. No drusen located in central macula. Continue to monitor. Type 2 diabetes mellitus without retinopathy 08/2022 Assessment & Plan (08/10/2022 12:29 PM EDT): Discussed need to continuously control blood sugar and blood pressure. Stressed the importance of continuing to follow the advice of patient's PCP and other providers coordinating care. Patient has no evidence of diabetic retinopathy at this time and will follow up for next diabetic eye exam. Patient was instructed to return immediately with any changes in vision. 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 08/10/2022 08/10/2022 Surgical History Surgery Date Site/Laterality Comments THYROID SURGERY 12/02/2017 - 12/01/2018 Right COLONOSCOPY KNEE ARTHROSCOPY 12/12/2022 Knee/Right RIGHT KNEE ARTHROSCOPY WITH MEDIAL MENISCAL DEBRIDEMENT; Surgeon: Donald Tong MD; Location: [facility]; Service: Orthopedics Medical History Medical History Date Comments Hyperlipidemia Hypertension Heartburn Arthritis Thyroid disease goiter Diabetes mellitus (HCC) Family History Medical History Relation Name Comments Cancer Father stomach Early Mother age 47 DC Heart Disease Mother Relation Name Status Comments Father Mother Social History Tobacco Use Types Packs/Day Years Used Date Smoking Tobacco: Former Cigarettes 0.5 30 1 01/1992 - 11/2022 Smokeless Tobacco: Never Tobacco Cessation:Counseling Given: Not Answered Alcohol Use Standard Drinks/Week Comments Yes 6 (1 standard drink = 0.6 oz pur e alcohol) per average week Sex and Gender Information Value Date Recorded Sex Assigned at Not on file Legal Sex Male 1:29 PM EDT Gender Identity Not on file Sexual Orientation Not on file Last Filed Vital Signs Vital Sign Reading Time Taken Comments Blood Pressure 139/71 12/12/2022 10:26 AM EST Pulse 65 12/12/2022 10:26 AM EST Temperature 35.9 C (96.6 F) 12/12/2022 9:43 AM EST Respiratory Rate 18 12/12/2022 10:2 6 AM EST Oxygen Saturation 100% 12/12/2022 10: 26 AM EST Inhaled Oxygen Concentration - - Weight 85.2 kg (187 lb 12.8 oz) 12/12/2022 5:45 AM EST Height 185.4 cm (6' 1 ) 12/12/2022 5:45 AM EST Body Mass Index 24.78 12/12/2022 5:45 AM EST Plan of Treatment Health Maintenance Due Date Last Done Comments Wellness Exam Medicare 1959 Lipids 1966 Diabetic Eye Exam 1974 Hepatitis C Screening 1974 Kidney Health: uACR 1974 Cologuard 2001 Colon Cancer Screening 2001 Colonoscopy 2001 FIT 2001 Sigmoidoscopy 2001 Virtual Colonography 2001 AAA Screening 2021 Hemoglobin A1c 06/04/2023 12/05/2022 Kidney Health: eGFR 12/05/2023 12/05/2022 COVID-19 Vaccine ( season) 2025 03/20/2022, 10/04/2021, 02/11/2021, Additional history exists Influenza Vaccine (#1) 2025 , 09/17/2022, 09/20/2021, Additional history exists DTaP/TDaP/Td (2 - Td or Tdap) 03/12/2028 03/12/2018, 02/10/1997 Zoster Completed 08/07/2018, 04/02/2018 Pneumococcal Vaccine 50+ Completed 09/17/2022, 03/02 Hepatitis B Vaccine Aged Out No longe r eligible based on patient's age to complete this topic Meningococcal B Vaccine Aged Out No l onger eligible based on patient's age to complete this topic Procedures Procedure Name Priority Date/Time Associated Diagnosis Comments BASIC METABOLIC PANEL Routine 12/05/2022 2:56 PM EST Preop testing Bucket-handle tear of medial meniscus of right knee as current injury, sequela Type 2 diabetes mellitus without complication, without long-term current use of insulin (HCC) HEMOGLOBIN A1C Routine 12/05/2022 2:56 PM EST Preop testing Bucket-handle tear of medial meniscus of right knee as current injury, sequela Type 2 diabetes mellitus without complication, without long-term current use of insulin (HCC) from Last 3 Months or Most Recently Relevant to Health Maintenance Results * (ABNORMAL) HEMOGLOBIN A1C (12/05/2022 2:56 PM EST) Hgb A1C 9.7(H) 4.2 - 5.6 % 12/05/2022 3:57 PM EST [email or web address] Est. Avg Glucose 232 mg/dL 12/05/2022 3:57 PM EST [email or web address] Blood VENOUS BLOOD / Unknown Venipuncture / Unknown 12/05/2022 2:56 PM EST 12/05/2022 2:56 PM EST Narrative [email or web address] - 12/05/2022 3:57 PM EST REFERENCE RANGE: Normal: 4.0-5.6% Pre-diabetes: 5.7-6.4% Provisional diagnosis of diabetes: >6.4% Hgb F>10% and anything which shortens red cell survival, such as hemolytic anemia, or unstable hemoglobin variants such as HbSS, HbSC, or HbCC, will lower the HbA1c value associated with a given level of glycemic control. us Dinah Stephens CRYSTAL CALIBRATOR CHEMISTRY ORDERABLES Final R esult [facility] [address] [facility] , [place] [address] * (ABNORMAL) BASIC METABOLIC PANEL (12/05/2022 2:56 PM EST) Sodium 137 136 - 145 mmol/L 12/05/2022 4:12 PM EST [facility] Potassium 4.5 3.5 - 5.0 mmol/L 12/05/2022 4:12 PM EST [facility] Chloride 100 98 - 107 mmol/L 12/05/2022 4:12 PM EST [facility] Total CO2 26 22 - 29 mmol/L 12/05/2022 4:12 PM EST [facility] Anion Gap 11 7 - 16 mmol/L 12/05/2022 4:12 PM EST [facility] Calcium 10.3 8.8 - 10.4 mg/dL 12/05/2022 4:12 PM EST [facility] Glucose Lvl 290(H) 82 - 100 mg/dL 12/05/2022 4:12 PM EST [facility] BUN 22 8 - 23 mg/dL 12/05/2022 4:12 PM EST [facility] Creatinine 1.29 0.67 - 1.30 mg/dL 12/05/2022 4:12 PM EST [facility] eGFR (CKD-EPIcr 2020) 61 >=60 mL/min/1.7 3 m2 12/05/2022 4:12 PM EST [facility] Comment:Estimated GFR was ca lculated using the CKD-EPIcr (2020) equation refit without race. The equation is recommended by the National Kidney Foundation - [place] [employer] of Nephrology Task Force. Blood VENOUS BLOOD / Unknown Venipuncture / Unknown 12/05/2022 2:56 PM EST 12/05/2022 2:56 PM EST us Dinah Stephens CRYSTAL CALIBRATOR CHEMISTRY ORDERABLES Final R esult [email or web address] [address] [facility] [place] [address] [facility] [address] [place] [address] from Last 3 Months or Most Recently Relevant to Health Maintenance Insurance VERONICA REILLYALBANLUKE MR [employer]ON[employer]LUKE MR * Guarantor: [employer] Account Type Relation to Patient Date of Phone Billing Address [employer] 1955 [address] [place] [phone] [employer] Care Teams Hospice Spiritual Care Coordinator Relationship Specialty Start Date End Date Kendrick Elizabeth [address] [facility] [address] [place] [address] PCP - General Family Medicine 12/12/22
== END 2025-10-11 23:59 | disposition home or self-care (01) ==
LOC: LAB.DROPOF 10-12 16:35
PROVIDERS: PCP Nurse Practitioner; Visit Provider Nurse Practitioner
DX: E78.5 Hyperlipidemia, unspecified (principal); Z11.59 Encounter for screening for other viral diseases; E11.9 Type 2 diabetes mellitus without complications; E03.9 Hypothyroidism, unspecified
CPT/HCPCS: 80053; 80061; 84439; 84443; 86803; 87389